=== PATIENT | female | born 1990 | race Caucasian/White ===

== ENCOUNTER 2020-09-05 15:18 | Outpatient (REF) | payer MEDICAID, SELFPAY ==
[2020-09-05 17:03] LABS: Basophils Percent Auto 0.5 % (0-2); MANUAL DIFF FLAG SCAN; Mean Corpuscular Volume 89.1 fL (80-98); Red Cell Distribution Width 12.4 % (11.0-16.0); SCAN SMEAR FLAG 1
[2020-09-05 17:05] LABS: Eosinophils Absolute Auto 0.2 X10*3/uL (0.0-0.4); Eosinophils Percent Auto 2.7 % (0-4); Hematocrit 36.1 % (37-47); Hemoglobin 11.8 g/dl (12.0-16.0); Imm Gran Abs Auto 0.02 X10*3/uL (0.00-0.03); Imm Gran Pct Auto 0.3 % (0.0-0.4); Lymphocytes Percent Auto 32.3 % (20-40); Mean Corpuscular HGB Conc 32.7 g/dl (31.0-35.0); Mean Corpuscular Hemoglobin 29.1 pg (27.0-33.0); Mean Platelet Volume 11.7 fL (9.4-12.3); Monocytes Absolute Auto 0.4 X10*3/uL (0.1-1.2); Monocytes Percent Auto 6.8 % (2-11); Neutrophils Absolute Auto 3.5 X10*3/uL (2.0-8.3); Neutrophils Percent Auto 57.4 % (45-73); Red Blood Count 4.05 X10*6/uL (4.20-5.50)
[2020-09-05 17:11] LABS: Estimated Average Glucose 91 mg/dL; Hemoglobin A1c % 4.8 %
[2020-09-05 17:26] LABS: C Reactive Protein 0.02 mg/dL (< or = 0.50); Cholesterol 136 mg/dL; HDL Cholesterol 58 mg/dL; Iron 128 mcg/dL (30-160); LDL Cholesterol Calculated 69 mg/dl; Percent Iron Saturation 41 % (15-50); Total Iron Binding Capacity 312 mcg/dL (228-428); Triglycerides 48 mg/dL; Unsaturated Iron Binding 184 ug/dL
[2020-09-05 17:34] LABS: SLIDE REVIEW VERIFIED
[2020-09-05 17:47] LABS: Ferritin 14 ng/mL (10-122); TSH reflex Free T4 0.58 mIU/mL (0.32-4.0); Vitamin D 25-OH Total 21.4 ng/mL (>30)
[2020-09-05 20:01] LABS: Alanine Aminotransferase 11 U/L (0-31); Alkaline Phosphatase 52 U/L (39-117); Anion Gap 13 (12-20); Aspartate Amino Transferase 13 U/L (5-31); Bilirubin Total 0.4 mg/dL (0.0-1.0); Blood Urea Nitrogen 10 mg/dL (9-16); Carbon Dioxide 24 mmol/L (22-29); Chloride 104 mmol/L (96-108); Estimated Glomerular Filt Rate > 60; Glucose Random 81 mg/dL (60-115); Potassium 4.1 mmol/l (3.3-5.1); Sodium 137 mmol/L (135-145); Total Protein 6.3 g/dL (6.5-8.0)
[2020-09-05 20:20] LABS: Platelet Count 180 X10*3/uL (160-400)
[2020-09-08 21:52] LABS: Vitamin B12 652 pg/mL (200-900)
[2020-09-09 02:26] LABS: Zinc 69 mcg/dL (60-130)
[2020-09-10 09:02] LABS: Vitamin B1 8 nmol/L (8-30)
[2020-09-10 12:57] LABS: Vitamin A 34 mcg/dL (38-98)
[2020-09-10 17:11] LABS: Parathyroid Hormone Related Pr 13 pg/mL (14-27)
== END 2020-09-05 15:19 | disposition home or self-care (01) ==
LOC: HO.LAB 15:18
PROVIDERS: Visit Provider Physician Assistant
DX: K29.70 Gastritis, unspecified, without bleeding (principal); Z98.84 Bariatric surgery status
CPT/HCPCS: 36415; 80048; 80053; 80061; 82040; 82247; 82306; 82607; 82728; 82746; 83036; 83519; 83525; 83540; 84075; 84155; 84425; 84443; 84450; 84460; 84590; 84630; 85025; 86140; 99214

== ENCOUNTER → 2020-09-12 12:47 | Outpatient (BNVA) | payer MEDICAID, SELFPAY | PROVIDERS: Visit Provider Physician Assistant | DX: E66.9 Obesity, unspecified (principal); Z68.25 Body mass index [BMI] 25.0-25.9, adult; E55.9 Vitamin D deficiency, unspecified; D64.9 Anemia, unspecified; E50.9 Vitamin A deficiency, unspecified; K29.00 Acute gastritis without bleeding; Z79.899 Other long term (current) drug therapy; Z98.84 Bariatric surgery status | CPT/HCPCS: 99213 ==

== ENCOUNTER → 2020-10-15 13:37 | Outpatient (BNVA) | payer MEDICAID, SELFPAY | PROVIDERS: Visit Provider Physician Assistant | DX: Z76.89 Persons encountering health services in other specified circumstances (principal) ==

== ENCOUNTER 2020-11-27 10:22 | Outpatient (REF) | payer MEDICAID, SELFPAY | END 2020-11-27 10:23 | disposition home or self-care (01) | LOC: HO.LAB 10:22 | PROVIDERS: Visit Provider Internal Medicine | DX: Z20.828 Contact with and (suspected) exposure to other viral communicable diseases (principal) | CPT/HCPCS: C9803; U0003 ==

== ENCOUNTER → 2020-12-19 08:50 | Outpatient (BNVA) | payer MEDICAID, SELFPAY | PROVIDERS: Visit Provider Physician Assistant ==

== ENCOUNTER → 2021-01-14 08:27 | Outpatient (BNVA) | payer MEDICAID, SELFPAY | PROVIDERS: Visit Provider Physician Assistant ==

== ENCOUNTER → 2021-05-14 10:25 | Outpatient (BNVA) | payer MEDICAID, SELFPAY | PROVIDERS: Visit Provider Physician Assistant | DX: E66.01 Morbid (severe) obesity due to excess calories (principal); E50.9 Vitamin A deficiency, unspecified; E55.9 Vitamin D deficiency, unspecified; D64.9 Anemia, unspecified; Z98.84 Bariatric surgery status | CPT/HCPCS: 99212 ==

== ENCOUNTER 2021-08-05 08:48 | Outpatient (REF) | payer MEDICAID, SELFPAY ==
--- NOTE | ~2021-08-05 | XR_ITS ---
EXAMINATION: XR LUMBOSACRAL SPINE CLINICAL INFORMATION: Lower back pain. COMPARISON: None TECHNIQUE: Three views of the lumbosacral spine. FINDINGS: Normal vertebral body alignment. The lumbar lordosis is maintained. No acute fracture or subluxation. Mild loss of intervertebral disc height with tiny anterior endplate osteophytes at L2-L3 and L5-S1. No lytic or blastic osseous lesion. Left upper quadrant surgical clips. XR/XR lumbar spine 2-3V IMPRESSION: Mild degenerative disc disease at L2-L3 and L5-S1.
== END 2021-08-05 08:49 | disposition home or self-care (01) ==
LOC: HO.XRAY 08:48
PROVIDERS: PCP Internal Medicine; Visit Provider Internal Medicine
DX: M54.5 Low back pain (principal)
CPT/HCPCS: 72100

== ENCOUNTER 2021-08-06 16:32 | Emergency (ER) | payer MEDICAID, SELFPAY ==
[2021-08-06 17:03] VITALS: BP 139/95; PULSE 82; RESP 16; TEMP 37.2; O2SAT 99; BMI 25.9
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
== END 2021-08-06 18:40 | disposition home or self-care (01) ==
LOC: HO.ED 18:12
PROVIDERS: Emergency Provider Emergency Medicine; PCP Internal Medicine
DX: M54.5 Low back pain (principal); Z98.84 Bariatric surgery status
CPT/HCPCS: 99283

== ENCOUNTER 2021-08-19 09:25 | Outpatient (REF) | payer MEDICAID, SELFPAY ==
--- NOTE | ~2021-08-19 | MR_ITS ---
EXAMINATION: MR LUMBAR SPINE WITHOUT CONTRAST CLINICAL INFORMATION: Bilateral leg pain and toe numbness or weakness. Lower back pain radiating to both legs. COMPARISON: Lumbar spine radiographs dated 08/05/2021. TECHNIQUE: MRI of the lumbar spine was obtained using routine sequences without contrast. FINDINGS: VERTEBRAL BODIES AND PARASPINAL STRUCTURES: Minimal dextrocurvature of the lumbar spine, unchanged. The lumbar lordosis is maintained. No acute fracture. Minimal grade 1 retrolisthesis of L5 on S1. No loss of vertebral body height. Loss of intervertebral disc height with disc desiccation at L5-S1. No marrow edema to suggest acute osseous injury. The visualized paraspinal soft tissues are unremarkable. CONUS MEDULLARIS AND CAUDA EQUINA: Normal, terminating at the level of L1. SPINAL LEVELS: T12-L1: No significant disc bulge. No central canal or neural foraminal stenosis. L1-L2: No significant disc bulge. No central canal or neural foraminal stenosis. L2-L3: No significant disc bulge. No central canal or neural foraminal stenosis. L3-L4: Shallow right subarticular disc protrusion which abuts the exiting right L3 nerve root. Bilateral facet arthropathy with mild right neural foraminal stenosis. L4-L5: Mild broad-based disc bulge with bilateral facet arthropathy. Mild bilateral neural foraminal stenosis. L5-S1: Broad-based disc bulge with a superimposed right paracentral and subarticular disc protrusion which abuts the exiting right L5 nerve root. Bilateral facet arthropathy with [id number] right and mild left neural foraminal stenosis. MR/MR lumbar spine wo con IMPRESSION: 1. Prominent degenerative disc disease at L5-S1 with minimal grade 1 retrolisthesis. Broad-based disc bulge with a superimposed right paracentral/subarticular disc protrusion which abuts the exiting right L5 nerve root. Bilateral facet arthropathy with [id number] right and mild left neural foraminal stenosis. 2. Shallow right subarticular disc protrusion at L3-L4 which abuts the exiting right L3 nerve root. Bilateral facet arthropathy with mild right neural foraminal stenosis. 3. Mild broad-based disc bulge at L4-L5 with bilateral facet arthropathy and mild bilateral neural foraminal stenosis.
== END 2021-08-19 09:26 | disposition home or self-care (01) ==
LOC: HO.MRI 09:25
PROVIDERS: Visit Provider Internal Medicine
DX: M54.42 Lumbago with sciatica, left side (principal)
CPT/HCPCS: 72148

== ENCOUNTER 2021-08-25 09:00 | Outpatient (RCR) | payer MEDICAID, SELFPAY ==
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
== END 2022-03-17 08:13 | disposition home or self-care (01) ==
LOC: HO.PTCHIC 09:00
PROVIDERS: PCP Internal Medicine; Visit Provider Internal Medicine
DX: M54.5 Low back pain (principal)
CPT/HCPCS: 97110; 97162

== ENCOUNTER → 2021-12-23 12:48 | Outpatient (REF) | payer MEDICAID, SELFPAY ==
--- NOTE | 2021-12-23 12:53 | ECG_ITS ---
Hook-up date: 2021-12-23 13:12:00 Duration: 41:32:00 Test Indications: PALPITATIONS Medications: 92521 QRS complexes 7 Ventricular ectopics which represent <1 % of total QRS comp. 7 Supraventricular ectopics which represent <1 % of total QRS comp. * Paced QRS complexs which represent % of total QRS comp. VENTRICULAR ECTOPY 7 Isolated 0 Bigeminal Cycles 0 Couplets 0 Runs 0 Beats in Runs * Beats LONGEST at * BPM at :: -- * Beats FASTEST at * BPM at :: -- SUPRAVENTRICULAR ECTOPY 7 Isolated 0 Couplets 0 Runs 0 Beats in Runs * Beats LONGEST at * BPM at :: -- * Beats FASTEST at * BPM at :: -- HEART RATES 43 MIN at 06:23:22 2021-12-24 70 AVG 155 MAX at 17:26:33 2021-12-23 LONGEST RR 1.4960 secs at 06:23:16 2021-12-24 S-T LEVELS Channel 1 - 128 mm at 13:12:00 2021-12-23 - 128 mm at 13:12:00 2021-12-23 Channel 2 - 128 mm at 13:12:00 2021-12-23 - 128 mm at 13:12:00 2021-12-23 Channel 3 - 128 mm at 03:23:11 -- - 128 mm at 03:23:11 Underlying rhythm is sinus; Average ventricular rate 70/min; range 43-155/min; Very rare supraventricular/ventricular ectopy; No sustained arrhythmias; Overall unremarkable. Referred By: Bella Blankenship Overread By: MARLENY VEGA
== END ==
LOC: HO.CARD 12:48
PROVIDERS: Visit Provider Student in an Organized Health Care Education/Training Program
DX: R00.2 Palpitations (principal)
CPT/HCPCS: 93225; 93226

== ENCOUNTER 2023-09-29 09:47 | Outpatient (AMB) | payer MEDICAID, SELFPAY ==
--- NOTE | 2023-09-29 10:07 | A.OFFVIS_ITS ---
Intake Vital Signs 09/29/23 10:14 Height 5 ft 9 in Weight 209 lb BMI 30.9 BP 133/78 Blood Pressure Location Lt brachial Position Sitting Pulse 74 Intake Visit Reasons: Rt breast pain at bx site Intake Note: Patient is seen in office for evaluation and treatment of of right breast pain at biopsy site. 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 The pain started without any inciting events and has persisted for the past month without significant change. She denies any palpable mass in either breast and denies skin change, nipple discharge or enlarged lymph nodes. She denies any recent mammogram or ultrasound evaluation. Her family history is significant for a maternal grandmother and paternal aunt with breast cancer. [facility] Medical History Obesity Fibroadenoma of right breast Depression with anxiety Surgical History History of lumpectomy of right breast (01/24/20) History of lumpectomy of left breast (06/11/19) Hx of breast biopsy (11/07/19) S/P laparoscopic sleeve gastrectomy (08/16/19) Family History Maternal Aunt Breast cancer, Onset Age: 40 Maternal Grandmother Breast cancer Social History Alcohol intake: never Review of Systems Const All systems reviewed & are unremarkable except as noted in HPI and below Physical Exam Vital Signs: Last Vital Signs Pulse 74 09/29/23 10:14 BP 133/78 09/29/23 10:14 BMI result Body Mass Index 30.9 Const General: cooperative and no acute distress Nutritional Appearance: well nourished Orientation/consciousness: patient oriented x3 Limitations: no limitations HEENT Head: Yes normocephalic and Yes atraumatic Ears: hearing grossly normal bilaterally Chest Other: Left breast: No skin change, no nipple retraction, no nipple discharge, no palpable mass, no enlarged lymph nodes. Fibrocystic change noted in the upper outer quadrant with mild tenderness to palpation. Right breast: No skin change, no nipple retraction, no nipple discharge, no palpable mass, no enlarged lymph nodes. Well-healed incision in the 9 o'clock position with mild tenderness to palpation. Tenderness also noted in the upper outer quadrant with an area of mild fibrocystic change but no discrete mass. Resp Effort & Inspection: normal respiratory effort, no audible wheezes, no cough and no respiratory distress Cardio Jugular venous distension: no JVD GI Inspection: Yes normal to inspection Skin Other: Warm, dry, no rash Neuro General: patient oriented x3 Extrem General: Yes no clubbing, cyanosis or edema Assessment & Plan Assessment & Plan (1) Breast pain, right: Code(s): N64.4 - Mastodynia (2) Fibroadenoma: Code(s): D24.9 - Benign neoplasm of unspecified breast Qualifiers: Laterality: right Qualified Code(s): D24.1 - Benign neoplasm of right breast Plan 33-year-old female patient with a prior history of fibroadenoma of the right breast s/p excision in 2019. She returns with a one-month history of right breast pain approximately adjacent to the previous incision. This started without any inciting events. Examination today reveals mild fibrocystic change bilaterally without any suspicious findings in either breast. I recommended further evaluation with mammogram and ultrasound. I will call her with the results once available. We also discussed genetic testing given her family history of breast cancer in both a maternal aunt and maternal grandmother. She is agreeable to the testing and will return following the testing to review results. Orders: Orders MM diagnostic mammo BI Today D24.9 - Benign neoplasm of unspecified breast, N64.4 - Mastodynia US breast RT limited Today D24.9 - Benign neoplasm of unspecified breast, N64.4 - Mastodynia Coding Level of Care Code New Pt Level 4 (14192) Diagnoses Breast pain, right N64.4 Fibroadenoma of right breast D24.1 Laterality: right
[2023-09-29 10:14] VITALS: BP 133/78; PULSE 74; BMI 30.9
== END 2023-09-29 10:30 | disposition home or self-care (01) ==
PROVIDERS: PCP Internal Medicine; Visit Provider Surgery
DX: N64.4 Mastodynia (principal); D24.1 Benign neoplasm of right breast
CPT/HCPCS: 99204

== ENCOUNTER → 2023-09-29 09:47 | Outpatient (BNVA) | payer MEDICAID, SELFPAY | PROVIDERS: PCP Internal Medicine; Visit Provider Surgery | DX: G89.18 Other acute postprocedural pain (principal); N64.4 Mastodynia | CPT/HCPCS: 99202 ==

== ENCOUNTER 2023-10-12 09:37 | Outpatient (REF) | payer MEDICAID, SELFPAY ==
--- NOTE | ~2023-10-12 | US_ITS ---
EXAMINATION: MM DIAGNOSTIC DIGITAL BREAST TOMOSYNTHESIS, BILATERAL US BREAST LIMITED, RIGHT MAMMOGRAPHY: CLINICAL INFORMATION: Evaluation of focal pain in the 8-12 o'clock region of the right breast over an area of scarring from a excision of a fibroadenoma. COMPARISON: Mammography: This study is compared with prior mammograms dating back to 2018. TECHNIQUE: Digital breast tomosynthesis is performed in both the craniocaudal and mediolateral oblique views along with computer-aided detection (CAD). Synthesized 2D images are generated from the tomosynthesis. FINDINGS: There are scattered areas of fibroglandular density (ACR BI-RADS breast composition Category b). There are no significant masses, abnormal calcifications, or other abnormalities. There are no mammographic signs of malignancy. ULTRASOUND: CLINICAL INFORMATION: Focal right breast pain in the 8-12 o'clock region. COMPARISON: None TECHNIQUE: Targeted sonographic evaluation was performed using a high frequency linear transducer. Selected archived documentation. FINDINGS: RIGHT BREAST: There is no focal finding in 8-12 o'clock region. Clinical follow-up is advised. US/US breast RT limited mamm only IMPRESSION: No mammographic signs of malignancy in either breast. No focal mammographic or sonographic abnormality and no finding which can be attributed to the patient's focal breast pain. Clinical follow-up is advised. OVERALL ASSESSMENT: Mammography: BI-RADS 1 - Negative Ultrasound: BI-RADS 1 - Negative RECOMMENDATION: 1 year F/U Clinical follow-up for the patient's breast pain is also advised. Results were provided to the patient at time of visit by the technologist. This patient's information was entered into a reminder system with a target due date for their next mammogram.
== END 2023-10-12 09:38 | disposition home or self-care (01) ==
LOC: HO.MAMMO 09:37
PROVIDERS: PCP Internal Medicine; Visit Provider Surgery
DX: N64.4 Mastodynia (principal)
CPT/HCPCS: 76642; 77062; 77066

== ENCOUNTER → 2023-10-12 10:00 | Outpatient (BNV) | payer MEDICAID, SELFPAY | PROVIDERS: PCP Internal Medicine; Visit Provider Radiology Diagnostic Radiology | DX: N64.4 Mastodynia (principal); R92.323 Mammographic fibroglandular density, bilateral breasts | CPT/HCPCS: 76642; 77062; 77066 ==

== ENCOUNTER 2023-11-10 09:52 | Outpatient (AMB) | payer MEDICAID, SELFPAY ==
--- NOTE | 2023-11-10 10:04 | MHC.OFFVIS ---
Intake Vital Signs 11/10/23 10:14 Height 5 ft 9 in Weight 211 lb BMI 31.2 BP 142/78 H Blood Pressure Location Lt brachial Position Sitting Pulse 91 Intake Visit Reasons: Rt breast pain at bx site, mammo/us results Intake Note: Patient is seen in office for one month follow up visit, following right breast pain at bx site. 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 The pain started without any inciting events and has persisted for the past 1.5 months without significant change. She denies any palpable mass in either breast and denies skin change, nipple discharge or enlarged lymph nodes. She was previously evaluated on 09/29/2023 and no suspicious findings noted at the area of the previous biopsy. She reports that her maternal aunt recently from metastatic breast cancer. She returns today to review her recent mammogram and ultrasound. The studies revealed no suspicious findings in either breast with a negative right breast ultrasound the site of breast pain (BI-RADS 1). Follow-up mammogram in 1 year is recommended. We again discussed genetic testing given her family history of breast cancer. She is in agreement wishes to proceed today. [facility] Medical History Obesity Fibroadenoma of right breast Depression with anxiety Surgical History History of lumpectomy of right breast (01/24/20) History of lumpectomy of left breast (06/11/19) Hx of breast biopsy (11/07/19) S/P laparoscopic sleeve gastrectomy (08/16/19) Family History Maternal Aunt Breast cancer, Onset Age: 40 Maternal Grandmother Breast cancer Social History Alcohol intake: never Review of Systems Const All systems reviewed & are unremarkable except as noted in HPI and below Physical Exam Vital Signs: Last Vital Signs Pulse 91 11/10/23 10:14 BP 142/78 H 11/10/23 10:14 BMI result Body Mass Index 31.2 Const General: no acute distress Nutritional Appearance: well nourished Chest Other: Exam deferred Resp Effort & Inspection: normal respiratory effort Skin Other: Warm dry, no rash Extrem Other: No edema Assessment & Plan Assessment & Plan (1) Breast pain, right: Code(s): N64.4 - Mastodynia (2) Fibroadenoma: Code(s): D24.9 - Benign neoplasm of unspecified breast Qualifiers: Laterality: right Qualified Code(s): D24.1 - Benign neoplasm of right breast Plan 33-year-old female patient with a prior history of fibroadenoma of the right breast s/p excision in 2019. She returned with a one-month history of right breast pain approximately adjacent to the previous incision. This started without any inciting events. Examination reveal mild fibrocystic change bilaterally without any suspicious findings in either breast. Workup with mammogram and ultrasound revealed no suspicious findings in either breast (BI-RADS 1). I recommended genetic testing which will be performed today. She will follow-up in approximately 6 months to review the results. She expressed understanding and agrees with the plan. Coding Level of Care Code Est Pt Level 3 (46685) Diagnoses Breast pain, right N64.4 Fibroadenoma of right breast D24.1 Laterality: right
[2023-11-10 10:14] VITALS: BP 142/78; PULSE 91; BMI 31.2
== END 2023-11-10 10:47 | disposition home or self-care (01) ==
PROVIDERS: PCP Internal Medicine; Visit Provider Surgery
DX: N64.4 Mastodynia (principal); D24.1 Benign neoplasm of right breast
CPT/HCPCS: 99213

== ENCOUNTER → 2023-11-10 09:52 | Outpatient (BNVA) | payer MEDICAID, SELFPAY | PROVIDERS: PCP Internal Medicine; Visit Provider Surgery | DX: N64.4 Mastodynia (principal); D24.1 Benign neoplasm of right breast | CPT/HCPCS: 99212 ==

== ENCOUNTER 2023-12-22 09:36 | Outpatient (AMB) | payer MEDICAID, SELFPAY ==
--- NOTE | 2023-12-22 09:37 | A.OFFVIS_ITS ---
Intake Vital Signs 12/22/23 09:43 Height 5 ft 9 in Weight 213 lb BMI 31.5 BP 125/61 Blood Pressure Location Lt brachial Position Sitting Pulse 73 Intake Visit Reasons: Genetic Results *HERE* Intake Note: Patient is seen in office for genetic testing results. 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 She has a prior history of right breast fibroadenoma excised on 01/24/2020 she has a family history of a maternal aunt with metastatic breast cancer. Her most recent mammogram and ultrasound obtained 10/12/2023 revealed no mammographic or sonographic evidence of malignancy (BI-RADS 1). Genetic testing revealed no clinically significant mutations identified and no variance of unknown significance. Her breast cancer risk score for remaining life was calculated at 10.7 % which is below the 20% threshold. We also discussed the Tyrer-Cuzick remaining lifetime risk of breast cancer of 20.3 % and reviewed the difference between the 2 scores. We reviewed the option of increased screening with twice yearly breast examination, yearly mammogram alternating with yearly breast MRI performed every 6 months and monthly self examinations. She expressed understanding of her options. Copy of the report was provided to the patient today. [facility] Medical History Obesity Fibroadenoma of right breast Depression with anxiety Surgical History History of lumpectomy of right breast (01/24/20) History of lumpectomy of left breast (06/11/19) Hx of breast biopsy (11/07/19) S/P laparoscopic sleeve gastrectomy (08/16/19) Family History Maternal Aunt Breast cancer, Onset Age: 40 Maternal Grandmother Breast cancer Social History Alcohol intake: never Review of Systems Const All systems reviewed & are unremarkable except as noted in HPI and below Physical Exam Vital Signs: Last Vital Signs Pulse 73 12/22/23 09:43 BP 125/61 12/22/23 09:43 BMI result Body Mass Index 31.5 Const General: comfortable Nutritional Appearance: well nourished Orientation/consciousness: patient oriented x3 Chest Other: Exam deferred Resp Effort & Inspection: normal respiratory effort Neuro General: patient oriented x3 Assessment & Plan Assessment & Plan (1) Fibroadenoma: Code(s): D24.9 - Benign neoplasm of unspecified breast Qualifiers: Laterality: right Qualified Code(s): D24.1 - Benign neoplasm of right breast (2) Breast pain, right: Code(s): N64.4 - Mastodynia (3) Family history of breast cancer: Code(s): Z80.3 - Family history of malignant neoplasm of breast Plan 33-year-old female patient with a family history of breast cancer in a maternal aunt and a previous history of fibroadenoma of the breast. She underwent genetic testing on 11/10/2023. Results revealed node clinically significant mutations and no variance of uncertain significance. Her breast cancer risk score was calculated at 10.7 %. She should continue with monthly self examinations and yearly mammograms. Yearly MRIs could be added based on the Tyrer-Cuzick score if desired. She will think about her options and follow-up as needed. Coding Level of Care Code Est Pt Level 3 (17772) Diagnoses Fibroadenoma of right breast D24.1 Laterality: right Breast pain, right N64.4 Family history of breast cancer Z80.3
[2023-12-22 09:43] VITALS: BP 125/61; PULSE 73; BMI 31.5
== END 2023-12-22 09:50 | disposition home or self-care (01) ==
PROVIDERS: PCP Internal Medicine; Referring Provider Internal Medicine; Visit Provider Surgery
DX: D24.1 Benign neoplasm of right breast (principal); N64.4 Mastodynia; Z80.3 Family history of malignant neoplasm of breast
CPT/HCPCS: 99213

== ENCOUNTER → 2023-12-22 09:36 | Outpatient (BNVA) | payer MEDICAID, SELFPAY | PROVIDERS: PCP Internal Medicine; Visit Provider Surgery | DX: D24.1 Benign neoplasm of right breast (principal); Z80.3 Family history of malignant neoplasm of breast | CPT/HCPCS: 99212 ==

== ENCOUNTER 2024-06-26 11:35 | Outpatient (REF) | payer MEDICAID, SELFPAY ==
[2024-06-26 14:13] LABS: Estimated Average Glucose 103 mg/dL; Hemoglobin A1c % 5.2 % (<6.0)
[2024-06-26 14:30] LABS: Alanine Aminotransferase 8 U/L (0-31); Aspartate Amino Transferase 21 U/L (5-31)
[2024-06-26 16:26] LABS: Bacterial Vaginosis PCR NEGATIVE (Negative); Candida Group PCR NOT DETECTED (Not Detect); Candida glab krusei PCR NOT DETECTED (Not Detect); Trichomonas vaginalis PCR NOT DETECTED (Not Detect)
[2024-06-27 04:42] LABS: HIV AB/AG Nonreactive (Nonreactive); HIV Num 1 0.06 S/CO (0.00-0.99)
== END 2024-06-26 11:36 | disposition home or self-care (01) ==
LOC: HO.HHCL 11:35
PROVIDERS: Visit Provider Advanced Practice Midwife
DX: Z79.899 Other long term (current) drug therapy (principal); Z11.3 Encounter for screening for infections with a predominantly sexual mode of transmission; Z83.3 Family history of diabetes mellitus; N89.8 Other specified noninflammatory disorders of vagina; R39.9 Unspecified symptoms and signs involving the genitourinary system
CPT/HCPCS: 0352U; 36415; 83036; 84450; 84460; 87086; 87389

== ENCOUNTER 2024-07-04 | Outpatient (REF) | payer MEDICAID, SELFPAY ==
[2024-07-06 10:55] LABS: Bacterial Vaginosis PCR NEGATIVE (Negative); Candida Group PCR NOT DETECTED (Not Detect); Candida glab krusei PCR NOT DETECTED (Not Detect); Trichomonas vaginalis PCR NOT DETECTED (Not Detect)
== END 2024-07-04 00:01 | disposition home or self-care (01) ==
LOC: HO.HHCLNP
PROVIDERS: Visit Provider Advanced Practice Midwife
DX: N94.89 Other specified conditions associated with female genital organs and menstrual cycle (principal)
CPT/HCPCS: 0352U

== ENCOUNTER 2024-09-26 13:51 | Outpatient (REF) | payer MEDICAID, SELFPAY ==
[2024-09-27 11:14] LABS: Bacterial Vaginosis PCR POSITIVE (Negative); Candida Group PCR DETECTED (Not Detect); Candida glab krusei PCR NOT DETECTED (Not Detect); Trichomonas vaginalis PCR NOT DETECTED (Not Detect)
== END 2024-09-26 13:52 | disposition home or self-care (01) ==
LOC: HO.CHCLNP 13:51
PROVIDERS: Visit Provider Family Medicine
DX: N76.0 Acute vaginitis (principal)
CPT/HCPCS: 0352U

== ENCOUNTER 2024-10-02 10:56 | Outpatient (REF) | payer MEDICAID, SELFPAY ==
[2024-10-02 14:28] LABS: MANUAL DIFF FLAG NO
[2024-10-02 14:39] LABS: Basophils Percent Auto 0.6 % (0-2); Hematocrit 28.9 % (37.0-47.0); Hemoglobin 8.4 g/dl (12.0-16.0); Imm Gran Abs Auto 0.02 X10*3/uL (0.00-0.03); Imm Gran Pct Auto 0.3 % (0.0-0.4); Lymphocytes Absolute Auto 1.2 X10*3/uL (1.2-4.9); Lymphocytes Percent Auto 18.7 % (20-40); Mean Corpuscular HGB Conc 29.1 g/dl (31.0-35.0); Mean Corpuscular Hemoglobin 22.6 pg (27.0-33.0); Mean Corpuscular Volume 77.9 fL (80.0-98.0); Monocytes Absolute Auto 0.4 X10*3/uL (0.1-1.2); Monocytes Percent Auto 6.6 % (2-11); Neutrophils Absolute Auto 4.7 x10*3/uL (2.0-8.3); Neutrophils Percent Auto 73.8 % (45-73); Platelet Count 330 X10*3/uL (160-400); Red Blood Count 3.71 X10*6/uL (4.20-5.50); Red Cell Distribution Width 16.8 % (11.0-16.0); White Blood Count 6.4 X10*3/uL (4.8-10.8)
[2024-10-02 15:29] LABS: Alanine Aminotransferase 14 U/L (0-31); Albumin Level 3.7 g/dL (3.5-5.0); Anion Gap 10 (12-20); Aspartate Amino Transferase 39 U/L (5-31); Bilirubin Total 0.2 mg/dL (0.0-1.0); Blood Urea Nitrogen 8 mg/dL (9-16); Calcium 9.3 mg/dL (8.4-10.2); Carbon Dioxide 24 mmol/L (22-29); Chloride 108 mmol/L (96-108); Cholesterol 169 mg/dL (<200); Estimated Glomerular Filt Rate > 60; Ferritin 4 ng/mL (10-122); Glucose Random 89 mg/dL (60-115); HDL Cholesterol 61 mg/dL (>40); Iron 21 mcg/dL (30-160); LDL Cholesterol Calculated 87 mg/dL (<100); Percent Iron Saturation 6 % (15-50); Potassium 4.2 mmol/L (3.3-5.1); Sodium 138 mmol/L (135-145); TSH reflex Free T4 0.48 uIU/mL (0.32-4.0); Total Iron Binding Capacity 351 mcg/dL (228-428); Total Protein 6.4 g/dL (6.5-8.0); Triglycerides 105 mg/dL (<150); Unsaturated Iron Binding 330 ug/dL; Vitamin D 25-OH Total 16.3 ng/mL (>30)
[2024-10-02 16:43] LABS: Alkaline Phosphatase 81 U/L (39-117)
== END 2024-10-02 10:57 | disposition home or self-care (01) ==
LOC: HO.CHCLDS 10:56
PROVIDERS: Visit Provider Family Medicine
DX: E55.9 Vitamin D deficiency, unspecified (principal); D64.9 Anemia, unspecified; R53.83 Other fatigue; E66.812 Obesity, class 2; Z68.35 Body mass index [BMI] 35.0-35.9, adult
CPT/HCPCS: 36415; 80053; 80061; 82306; 82728; 83540; 84443; 85025

== ENCOUNTER 2025-11-14 15:59 | Outpatient (REF) | payer MEDICAID, SELFPAY ==
--- OUTSIDE RECORDS SUMMARY | 2025-11-14 15:30 | XMS_ITS | Encounter Summary ---
Author Organization [employer] Address [address] [place] [address] [address] [place] [address] Care Team Providers Care Respiratory Equipment Assistant Name Role Phone Yasmin Deras MD Primary Care Provider [phone] Encounter Details Date Type Department Care Team ([facility] st Contact Info) Description 11/14/2025 3:30 PM EST Office Visit [facility] [address] [place] [address] Yasmin Deras MD [address] [place] [address] Anemia, unspecified type (Primary Dx); Encounter for health-related screening; Vitamin D deficiency Social History Tobacco Use Types Packs/Day Years Used Date Smoking Tobacco: Never Passive Smoke Exposure: Never Smokeless Tobacco: Never Alcohol Use Standard Drinks/Week Comments Never 0 (1 standard drink = 0.6 oz pur e alcohol) Alcohol Answer Date Recorded Frequency of Alcohol Consumption Not on file 09/26/2024 Average Number of Drinks Not on file 024 Frequency of Binge Drinking Not on file 08/30 Score 0 09/26/2024 Depression Answer Date Recorded Patient Health Questionnaire-9 Score 15 09/26/2024 Patient Health Questionnaire-9 Score 15 09/26/2024 Last PHQ-9: Questionnaire Data Not on file 1 Housing Stability Answer Date Recorded What is your housing situation today? I have shayy lindsey 09/19/[address] you li ve. Do you have problems with any of the following? None of the above 09/19/2024 Food Insecurity Answer Date Recorded Within the past 12 months, y ou worried that your food would run out before you got money to buy more: Never True 09/19/2024 Within the past 12 months,th e food you bought just didn't last and you didn't have enough money to get more: Never True Transportation Answer Date Recorded In the past 12 months, has l ack of transportation kept you from medical appts, meetings, work or from getting things needed for daily living? No 09/19/2024 Utilities Answer Date Recorded In the past 12 months, has t he electric, gas, oil or water company threatened to shut off services in your home? No 09/19/2024 Depression Answer Date Recorded Patient Health Questionnaire-2 Score 3 09/26/2024 Internet Access Answer Date Recorded Internet Access Q1 Yes 09/19/2024 Internet Access Q2 Not on file 09/19/2024 Comments No Sex and Gender Information Value Date Recorded Sex Assigned at Female 09/27/2022 10:30 AM EDT Legal Sex Female 10:30 AM EDT Gender Identity Female 09/27/2022 10:30 AM EDT Sexual Orientation Straight 09/27/2022 10 :30 AM EDT documented as of this encounter Last Filed Vital Signs Vital Sign Reading Time Taken Comments Blood Pressure 125/82 11/14/2025 3:18 PM EST Pulse 80 11/14/2025 3:18 PM EST Temperature 36.8 C (98.2 F) 11/14/2025 3:18 PM EST Respiratory Rate 20 11/14/2025 3:18 PM EST Oxygen Saturation 98% 11/14/2025 3:18 PM EST Inhaled Oxygen Concentration - - Weight 110 kg (243 lb) 11/14/2025 3:18 PM EST Height 174 cm (5' 8.5 ) 11/14/2025 3:18 PM EST Body Mass Index 36.41 11/14/2025 3:18 PM EST documented in this encounter Plan of Treatment Scheduled Orders Name Type Priority Associated Diagnoses Orde r Schedule Hepatitis C Antibody with Reflex to HCV, RNA, Quantitative, Real-Time PCR Lab Routine Encounter for health-related screening Expected: 11/14/2025, Expires: 11/14/2026 Hepatitis B Surface Antibody, Qualitative Lab Routine Encounter for health-related screening Expected: 11/14/2025 (Approximate), Expires: 11/14/2026 Hepatitis B Core Antibody, Total Lab Routine Encounter for health-related screening Expected: 11/14/2025 (Approximate), Expires: 11/14/2026 Hepatitis B surface antigen, EIA Lab Routine Encounter for health-related screening Expected: 11/14/2025 (Approximate), Expires: 11/14/2026 documented as of this encounter Procedures Procedure Name Priority Date/Time Associated Diagnosis Comments VITAMIN D,25-OH,TOTAL,IA Routine 11/14/2025 4:00 PM EST Vitamin D deficiency CBC WITH AUTO DIFFERENTIAL Routine 11/14/2025 4:00 PM EST Anemia, unspecified type IRON AND TOTAL IRON BINDING CAPACITY Routine 11/14/2025 4:00 PM EST Anemia, unspecified type FERRITIN Routine 11/14/2025 4:00 PM EST Anemia, unspecified type COMPREHENSIVE METABOLIC PANEL Routine 11/14/2025 4:00 PM EST Anemia, unspecified type documented in this encounter Results * (ABNORMAL) Vitamin D, 25-Hydroxy, Total, Immunoassay (11/14/2025 4:00 PM EST) Vitamin D 25-OH Total 15.4(L) >30 ng/mL [facility] Comment: Health Based Reference Values*< 20 ng/mL Svvddmmti51-22 ng/mL Insufficient> 30 ng/mL Sufficient*Antonietta MARSHALL. N Engl J Med. 2007;357:266-280There is no well-established upper level of normal vitamin Dlevels. Some laboratories use 50 ng/mL as an upper limit ofnormal. However, toxicity is patient-dependent and may occurat any level. Careful correlation with the patient'spresentation is necessary and, if there is concern forvitamin D toxicity, treatment should be consideredirrespective of the serum level.Care must be taken in interpreting Vitamin D results fromdifferent laboratories and methodologies. Published datademonstrated that results from patients undergoinghemodialysis may show a negative bias when tested withvarious automated 25-OH vitamin D assays when compared toLC-MS/MS.When testing samples from patients whose predominant form ofVitamin D is Vitamin D2, such as patients receiving VitaminD2 supplementation, results that are subtherapeutic shouldbe confirmed with another method such as LC-MS/MS. Blood Venous blood specimen / Unknown 11/14/2025 4:00 PM EST 11/14/2025 5:47 PM EST Yasmin Deras MD LAB BLOOD ORDERABLES Final Re sult Performing Organization Address [facility]/ZIP Co de Phone Number [facility] [address] [place] [phone] * (ABNORMAL) Ferritin (11/14/2025 4:00 PM EST) Ferritin 5(L) 10 - 122 ng/mL [facility] Blood Venous blood specimen / Unknown 11/14/2025 4:00 PM EST 11/14/2025 5:47 PM EST Yasmin Deras MD LAB BLOOD ORDERABLES Final Re sult Performing Organization Address [facility]/ZIP Co de Phone Number [facility] [address] [place] [phone] * (ABNORMAL) Iron And Total Iron Binding Capacity (11/14/2025 4:00 PM EST) Iron 17(L) 30 - 160 mcg/dL [facility] Total Iron Binding Capacity 372 228 - 428 mcg/dL [facility] Percent Iron Saturation 5(L) 15 - 50 % [facility] Unsaturated Iron Binding 355 ug/dL [facility] Blood Venous blood specimen / Unknown 11/14/2025 4:00 PM EST 11/14/2025 5:47 PM EST Yasmin Deras MD LAB BLOOD ORDERABLES Final Re sult Performing Organization Address City/[facility]/ZIP Co de Phone Number [facility] [address] [place] [address] [phone] * (ABNORMAL) Comprehensive Metabolic Panel (11/14/2025 4:00 PM EST) Sodium 137 135 - 145 mmol/L [facility] Potassium 4.1 3.3 - 5.1 mmol/L [facility] Chloride 104 96 - 108 mmol/L [facility] Carbon Dioxide 26 22 - 29 mmol/L [facility] Anion Gap 11(L) 12 - 20 [facility] Urea Nitrogen (BUN) 10 9 - 16 mg/dL [facility] Creatinine, Serum 0.69 0.5 - 1.4 mg/dL [facility] Estimated Glomerular Filt Rate >60 [facility] Comment:Chronic Kidney Disea se: Estimated GFR < 60 mL/min/1.53h1Ddesot Kidney Disease: Estimated GFR < 15 mL/min/1.73m2 Glucose 91 60 - 115 mg/dL [facility] Calcium 9.5 8.4 - 10.2 mg/dL [facility] Bilirubin, Total 0.2 0.0 - 1.0 mg/dL [facility] Aspartate Amino Transferase 15 5 - 31 U/L [facility] Alanine Aminotransferase <6 0 - 31 U/L [facility] Total Protein 7.0 6.5 - 8.0 g/dL [facility] Albumin Level 4.3 3.5 - 5.0 g/dL [facility] Alkaline Phosphatase 64 39 - 117 U/L [facility] Blood Venous blood specimen / Unknown 11/14/2025 4:00 PM EST 11/14/2025 5:47 PM EST us Yasmin Deras MD LAB BLOOD ORDERABLES Final Re sult Performing Organization Address [facility]/ZIP Co de Phone Number [facility] [address] [place] [address] [phone] * (ABNORMAL) CBC auto differential (11/14/2025 4:00 PM EST) White Blood Count 10.7 4.8 - 10.8 X10*3/uL [facility] Red Blood Count 4.19(L) 4.20 - 5.50 X10*6/uL [facility] Hemoglobin 8.9(L) 12.0 - 16.0 g/dl [facility] Hematocrit 31.2(L) 37.0 - 47.0 % [facility] Mean Corpuscular Volume 74.5(L) 80.0 - 98.0 fL [facility] Mean Corpuscular Hemoglobin 21.2(L) 27.0 - 33.0 pg [facility] Mean Corpuscular HGB Conc 28.5(L) 31.0 - 35.0 g/dl [facility] Red Cell Distribution Width 16.5(H) 11.0 - 16.0 % [facility] Platelet Count 436(H) 160 - 400 X10*3/uL [facility] Mean Platelet Volume 10.3 9.4 - 12.3 fL [facility] Neutrophils Percent Auto 71.9 45 - 73 % [facility] Imm Gran Pct Auto 0.3 0.0 - 0.4 % [facility] Lymphocytes Percent Auto 20.9 20 - 40 % [facility] Monocytes Percent Auto 6.1 2 - 11 % [facility] Eosinophils Percent Auto 0.2 0 - 4 % [facility] Basophils Percent Auto 0.6 0 - 2 % [facility] NRBC Pct Auto 0.0 0.0 - 0.2 /100WBC [facility] Neutrophils Absolute Auto 7.7 2.0 - 8.3 x10*3/uL [facility] Imm Gran Abs Auto 0.03 0.00 - 0.03 X10*3/uL [facility] Lymphocytes Absolute Auto 2.2 1.2 - 4.9 X10*3/uL [facility] Monocytes Absolute Auto 0.7 0.1 - 1.2 X10*3/uL [facility] Eosinophils Absolute Auto 0.0 0.0 - 0.4 X10*3/uL [facility] Basophils Absolute Auto 0.1 0.0 - 0.2 X10*3/uL [facility] NRBC Abs Auto 0.000 0.0 - 0.012 X10*3/uL [facility] Blood Venous blood specimen / Unknown 11/14/2025 4:00 PM EST 11/14/2025 5:47 PM EST us Yasmin Deras MD LAB BLOOD ORDERABLES Final Re sult [facility] [address] [place] [phone] documented in this encounter Visit Diagnoses Diagnosis Anemia, unspecified type- Primary Encounter for health-related screening Vitamin D deficiency documented in this encounter Additional Health Concerns Assessment Noted Time PHQ-9 Depression Total Score: 15 024 9:32 AM EDT documented as of this encounter Care Teams Respiratory Equipment Assistant Relationship Specialty Start Date End Date Yasmin Deras MD [address] [place] [address] PCP - General Family Medicine 08/28/24 documented as of this encounter
[2025-11-14 17:49] LABS: MANUAL DIFF FLAG NO
[2025-11-14 18:01] LABS: Hematocrit 31.2 % (37.0-47.0); Hemoglobin 8.9 g/dl (12.0-16.0); Imm Gran Abs Auto 0.03 X10*3/uL (0.00-0.03); Imm Gran Pct Auto 0.3 % (0.0-0.4); Lymphocytes Absolute Auto 2.2 X10*3/uL (1.2-4.9); Mean Corpuscular HGB Conc 28.5 g/dl (31.0-35.0); Mean Corpuscular Hemoglobin 21.2 pg (27.0-33.0); Mean Corpuscular Volume 74.5 fL (80.0-98.0); NRBC Abs Auto 0.000 X10*3/uL (0.0-0.012); NRBC Pct Auto 0.0 /100WBC (0.0-0.2); Platelet Count 436 X10*3/uL (160-400); Red Blood Count 4.19 X10*6/uL (4.20-5.50); White Blood Count 10.7 X10*3/uL (4.8-10.8)
[2025-11-14 18:39] LABS: Alanine Aminotransferase < 6 U/L (0-31); Albumin Level 4.3 g/dL (3.5-5.0); Alkaline Phosphatase 64 U/L (39-117); Anion Gap 11 (12-20); Aspartate Amino Transferase 15 U/L (5-31); Blood Urea Nitrogen 10 mg/dL (9-16); Calcium 9.5 mg/dL (8.4-10.2); Carbon Dioxide 26 mmol/L (22-29); Chloride 104 mmol/L (96-108); Estimated Glomerular Filt Rate > 60; Iron 17 mcg/dL (30-160); Percent Iron Saturation 5 % (15-50); Potassium 4.1 mmol/L (3.3-5.1); Sodium 137 mmol/L (135-145); Total Iron Binding Capacity 372 mcg/dL (228-428); Total Protein 7.0 g/dL (6.5-8.0); Unsaturated Iron Binding 355 ug/dL
[2025-11-14 18:48] LABS: Ferritin 5 ng/mL (10-122)
--- OUTSIDE RECORDS SUMMARY | 2025-11-14 19:35 | XMS_ITS | Clinical Summary ---
Author Organization [employer] Address [address] [place] [address] 7 [place] [address] Care Team Providers Care Network Security Consultant Name Role Phone Yasmin Deras MD Primary Care Provider [phone] Allergies No known active allergies Medications * This document contains information received from the source organization and may not represent a complete record from that organization. cholecalcifero l (Vitamin D-3) 50 MCG (1999 UT) capsule Take 1 capsule (50 mcg) by mouth Once per day. 120 capsule 3 10/17/20 24 Active ergocalciferol (Vitamin D2) 1.25 MG (93589 UT) capsule Take 1 capsule (1.25 mg) by mouth 1 (one) time per week. 12 capsule 10/17/20 24 Active ferrous gluconate (Fergon) 324 (38 Fe) MG tablet Take 1 tablet (324 mg) by mouth with breakfast. 90 tablet 1 11/14/20 25 Active pantoprazole (ProtoNix) 40 MG EC tablet Take 1 tablet (40 mg) by mouth before breakfast. Do not crush, chew, or split. 90 tablet 1 11/14/20 25 Active omeprazole OTC (PriLOSEC OTC) 20 MG EC tablet Take 1 tablet (20 mg) by mouth before breakfast. Do not crush, chew, or split. 30 tablet 11 06/13/20 24 025 Discontinued(Th erapy completed) fluconazole (Diflucan) 150 MG tablet Take 1 tablet (150 mg) by mouth every 3rd (third) day. 3 tablet 09/26/20 24 025 Discontinued(Th erapy completed) ferrous gluconate (Fergon) 324 (38 Fe) MG tablet Take 1 tablet (324 mg) by mouth with breakfast. 90 tablet 1 10/17/20 24 025 Discontinued(Re order (will not trigger notification to Pharmacy)) omeprazole (PriLOSEC) [address] capsule TAKE 1 CAPSULE BY MOUTH BEFORE BREAKFAST. DO NOT CRUSH, OR CHEW CAPSULE. 90 capsule 1 06/13/20 25 025 Discontinued(Th erapy completed) pantoprazole (ProtoNix) 40 MG EC tablet Take 40 mg by mouth before breakfast. Do not crush, chew, or split. 025 Discontinued(Re order (will not trigger notification to Pharmacy)) Active Problems Problem Noted Date Diagnosed Date Presence of intrauterine contraceptive device Overview (09/26/2024): Mirena Obesity 09/26/2024 Assessment & Plan (09/26/2024 9:47 AM EDT): Ordering Lipid panel for further evaluation. Anemia 09/26/2024 Assessment & Plan (09/26/2024 9:48 AM EDT): Ordering lab work for further evaluation. Recurrent vaginitis 09/26/2024 Assessment & Plan (09/26/2024 9:47 AM EDT): Ordered BV swab for further treatment. Continue on Diflucan increased dose for Sx. Relevant Medication Fluconazole (Diflucan) 100 MG tablet Fluconazole (Diflucan) 150 MG tablet Vitamin D deficiency 09/26/2024 Assessment & Plan (09/26/2024 9:48 AM EDT): Ordering Vitamin D lab work for further evaluation of fatigue. Anxiety 04/18/2023 Assessment & Plan (04/18/2023 2:08 PM EDT): Will refer to behavioral therapy, no suicidal/homicidal ideas, currently off medications Migraine with aura 10/29/2022 Mood disorder 10/29/2022 Assessment & Plan (08/29/2023 3:12 PM EDT): Will restart Prozac, will follow up in office Seasonal allergies 10/29/2022 Resolved Problems Problem Noted Date Diagnosed Date Resolved Date Menorrhagia 09/26/2024 09/26/2024 Encounter for screening mamm ogram for malignant neoplasm of breast 08/29/2023 09/26/2024 Elevated blood pressure reading 04/18/2023 09/26/2024 Assessment & Plan (08/29/2023 3:13 PM EDT): Patient not monitoring her blood pressure, reinfoced importance of daily monitoring, will follow up in office Assessment & Plan (04/18/2023 2:09 PM EDT): Patient did picked up the bp monitor but has not been checking her bp, told to do it at least 2-3 times a week, bp target <140/90 Recurrent urinary tract infection 10/29/2022 09/26/2024 Encounters Date Type Department Care Team Description 11/14/2025 3:30 PM EST Office Visit [facility] PEDS [address] [place], [place] [phone] Yasmin Deras MD Anemia, unspecified type (Primary Dx); Encounter for health-related screening; Vitamin D deficiency 11/14/2025 Travel 11/13/2025 Refill [facility] [address] [place] [address] [phone] Yasmin Deras MD 11/12/2025 Telephone [facility] [address] [place] [phone] Yasmin Deras MD Lab Orders; Call Back Request from Last 3 Months Immunizations Immunization Administration Dates Next Due DTP 05/15/1993, 0,1988,1987,1988 Hep B, Adolescent or Pediatric 07/18/2000 Hib (PRP-T) 02/21/1991 Influenza injectable quadriv alent IIV4 with preservative 08/10/2018,10/15/2016 MMR 07/18/2000,07/06/1989 OPV, Trivalent 05/15/1993, 1,1988,1987 Pfizer Covid-19 Vaccine 12+ 03/03/2021 TD (adult), 2 Lf tetanus tox oid, preservative free, adsorbed 07/18/2000 Tdap 09/26/2024,03/15/2013,06/01/2011 Family History Medical History Relation Name Comments Diabetes Father Stroke Father Breast cancer Maternal Grandmother Coronary artery disease Mother Heart attack Mother Breast cancer Mother's Sister Relation Name Status Comments Father Maternal Grandmother Mother Mother's Sister Social History Tobacco Use Types Packs/Day Years Used Date Smoking Tobacco: Never Passive Smoke Exposure: Never Smokeless Tobacco: Never Tobacco Cessation:Counseling Given: Not Answered Alcohol Use Standard Drinks/Week Comments Never 0 [...] Orientation Straight 09/27/2022 10 :30 AM EDT Last Filed Vital Signs Vital Sign Reading [...] Mass Index 36.41 11/14/2025 3:18 PM EST Plan of Treatment Health Maintenance Due Date Last Done Comments Disability Screening 1988 Alcohol/Substance Use Screening 2000 Hepatitis B Vaccines (2 of 3 - 3-dose series) 08/15/2000 07/18/2000 Family Planning (PISQ) 02/27/2003 Hepatitis C Screening 02/27/2006 Depression Monitoring 03/27/2025 09/26/2024, 024 SDOH Screening 11/29/2025 11/29/2024 Influenza Vaccine (#1) 2026 08/10/2018, 2015 Postponed from 07/29/2025 (Patient Refused) COVID-19 Vaccine ( season) 2026 12/29/2022, 03/03/2021 Postponed from 07/29/2025 (Patient Refused) HPV Vaccines (1 - 3-dose series) 11/14/2026 Postponed from 02/27/2003 (Patient Refused) Tobacco Screening 11/14/2026 11/14/2025 Cervical Cancer Screening 01/26/2027 HPV/Cotest 01/26/2027 01/26/2022 Pap Smear 01/26/2027 01/26/2022 Lipid Panel 10/02/2029 10/02/2024 DTaP/Tdap/Td Vaccines (9 - Td or Tdap) 09/26/2034 09/26/2024, 03/15/2013, 06/01/2011, Additional history exists Zoster Vaccines (1 of 2) 02/27/2038 RSV Patients and Patients Aged 60 years or older (1 - 1-dose 75+ series) 02/27/2063 HIB Vaccines Completed 02/21/1991 IPV Vaccines Completed 05/15/1993, 01/27, 1988, Additional history exists HIV Screening Completed 06/26/2024 Hepatitis A Vaccines Aged Out No long er eligible based on patient's age to complete this topic Meningococcal B Vaccine Aged Out No l onger eligible based on patient's age to complete this topic Meningococcal Vaccine Aged Out No ha cookie eligible based on patient's age to complete this topic Pneumococcal Vaccine: Pediatrics (0 to 5 Years) and At-Risk Patients (6 to 49) Years Aged Out No longer eligible based on patient's age to complete this topic RSV under 20 months Aged Out No longe r eligible based on patient's age to complete this topic Rotavirus Vaccines Aged Out No longer eligible based on patient's age to complete this topic Procedures Procedure Name Priority Date/Time Associated Diagnosis Comments VITAMIN D,25-OH,TOTAL,IA Routine 11/14/2025 4:00 PM EST Vitamin D deficiency FERRITIN Routine 11/14/2025 4:00 PM EST Anemia, unspecified type IRON AND TOTAL IRON BINDING CAPACITY Routine 11/14/2025 4:00 PM EST Anemia, unspecified type COMPREHENSIVE METABOLIC PANEL Routine 11/14/2025 4:00 PM EST Anemia, unspecified type CBC WITH AUTO DIFFERENTIAL Routine 11/14/2025 4:00 PM EST Anemia, unspecified type LIPID PANEL, STANDARD Routine 10/02/2024 10:57 AM EST Class 2 obesity without serious comorbidity with body mass index (BMI) of 35.0 to 35.9 in adult, unspecified obesity type HIV 1/2 ANTIGEN/ANTIBODY, FOURTH GENERATION W/RFL Routine 06/26/2024 12:00 PM EDT Encntr screen for infections w sexl mode of transmiss HM PAP/HPV Routine 01/26/2022 from Last 3 Months or Most Recently Relevant to Health Maintenance Results * (ABNORMAL) Vitamin D, 25-Hydroxy, Total, Immunoassay (11/14/2025 4:00 PM EST) Vitamin D 25-OH Total 15.4(L) >30 ng/mL [facility] Comment: Health Based Reference Values*< 20 ng/mL Jftkzzdid51-10 ng/mL Insufficient> 30 ng/mL Sufficient*Antonietta MARSHALL. N [...] MD LAB BLOOD ORDERABLES Final Re sult [facility] [address] [place] [phone] * (ABNORMAL) CBC auto differential (11/14/2025 4:00 PM EST) White Blood Count 10.7 4.8 - 10.8 X10*3/uL [facility] Red Blood Count 4.19(L) 4.20 - 5.50 X10*6/uL [facility] Hemoglobin 8.9(L) 12.0 - 16.0 g/dl [facility] Hematocrit 31.2(L) 37.0 - 47.0 % [facility] Mean Corpuscular Volume 74.5(L) 80.0 - 98.0 fL [facility] Mean Corpuscular Hemoglobin 21.2(L) 27.0 - 33.0 pg [facility] Mean Corpuscular HGB Conc 28.5(L) 31.0 - 35.0 g/dl [facility] Red Cell Distribution Width 16.5(H) 11.0 - 16.0 % [facility] Platelet Count 436(H) 160 - 400 X10*3/uL [facility] Mean Platelet Volume 10.3 9.4 - 12.3 fL [facility] Neutrophils Percent Auto 71.9 45 - 73 % [facility] Imm Gran Pct Auto 0.3 0.0 - 0.4 % [facility] Lymphocytes Percent Auto 20.9 20 - 40 % [facility] Monocytes Percent Auto 6.1 2 - 11 % [facility] Eosinophils Percent Auto 0.2 0 - 4 % [facility] Basophils Percent Auto 0.6 0 - 2 % [facility] NRBC Pct Auto 0.0 0.0 - 0.2 /100WBC [facility] Neutrophils Absolute Auto 7.7 2.0 - 8.3 x10*3/uL [facility] Imm Gran Abs Auto 0.03 0.00 - 0.03 X10*3/uL [facility] Lymphocytes Absolute Auto 2.2 1.2 - 4.9 X10*3/uL [facility] Monocytes Absolute Auto 0.7 0.1 - 1.2 X10*3/uL [facility] Eosinophils Absolute Auto 0.0 0.0 - 0.4 X10*3/uL [facility] Basophils Absolute Auto 0.1 0.0 - 0.2 X10*3/uL [facility] NRBC Abs Auto 0.000 0.0 - 0.012 X10*3/uL [facility] Blood Venous blood specimen / Unknown 11/14/2025 4:00 PM EST 11/14/2025 5:47 PM EST Result [facility] Yasmin Deras MD LAB BLOOD ORDERABLES Final Re sult Performing Organization Address [facility] Co de Phone Number [facility] [address] [place] [phone] * (ABNORMAL) Iron And Total Iron Binding Capacity (11/14/2025 4:00 PM EST) Iron 17(L) 30 - 160 mcg/dL [facility] Total Iron Binding Capacity 372 228 - 428 mcg/dL [facility] Percent Iron Saturation 5(L) 15 - 50 % [facility] Unsaturated Iron Binding 355 ug/dL [facility] Blood Venous blood specimen / Unknown 11/14/2025 4:00 PM EST 11/14/2025 5:47 PM EST Result [facility] Yasmin Deras MD LAB BLOOD ORDERABLES Final Re sult Performing Organization Address City/[facility]/ZIP Co de Phone Number [facility] [address] [place] [phone] * (ABNORMAL) Ferritin (11/14/2025 4:00 PM EST) Ferritin 5(L) 10 - 122 ng/mL [facility] Blood Venous blood specimen / Unknown 11/14/2025 4:00 PM EST 11/14/2025 5:47 PM EST Yasmin Deras MD LAB BLOOD ORDERABLES Final Re sult Performing Organization Address City/[facility]/ZIP Co de Phone Number [facility] [address] [place] [phone] * (ABNORMAL) Comprehensive Metabolic Panel (11/14/2025 4:00 PM EST) Sodium 137 135 - 145 mmol/L [facility] Potassium 4.1 3.3 - 5.1 mmol/L [facility] Chloride 104 96 - 108 mmol/L [facility] Carbon Dioxide 26 22 - 29 mmol/L [facility] Anion Gap 11(L) 12 - 20 [facility] Urea Nitrogen (BUN) 10 9 - 16 mg/dL [facility] Creatinine, Serum 0.69 0.5 - 1.4 mg/dL [facility] Estimated Glomerular Filt Rate >60 [facility] Comment:Chronic Kidney Disea se: Estimated GFR < 60 mL/min/[id number] Kidney Disease: Estimated GFR < 15 mL/min/1.73m2 Glucose 91 60 - 115 mg/dL [facility] Calcium 9.5 8.4 - 10.2 mg/dL [facility] Bilirubin, Total 0.2 0.0 - 1.0 mg/dL [facility] Aspartate Amino Transferase 15 5 - 31 U/L [facility] Alanine Aminotransferase <6 0 - 31 U/L [facility] Total Protein 7.0 6.5 - 8.0 g/dL [facility] Albumin Level 4.3 3.5 - 5.0 g/dL [facility] Alkaline Phosphatase 64 39 - 117 U/L [facility] Blood Venous blood specimen / Unknown 11/14/2025 4:00 PM EST 11/14/2025 5:47 PM EST us Yasmin Deras MD LAB BLOOD ORDERABLES Final Re sult Performing Organization Address [facility]/ZIP Co de Phone Number [facility] [address] [place] [phone] * Lipid Panel, Standard (10/02/2024 10:57 AM EST) Triglycerides 105 <150 mg/dL [facility] Comment:Desirable Triglyceri de: less than 150 mg/dLBorderline High Triglyceride 150-199 mg/dLHigh Triglyceride: 200-499 mg/dLVery High Triglyceride: greater than or equal to 5OO mg/dL Cholesterol 169 <200 mg/dL [facility] Comment:Desirable Cholestero l: less than 200 mg/dLBorderline High Cholesterol: 200-239 mg/dLHigh Cholesterol: greater than 239 mg/dL LDL Cholesterol Calculated 87 <100 mg/dL [facility] Comment:Desirable LDL: less than 100 mg/dLNear Optimal/Above Optimal LDL: 110- 129 mg/dLBorderline High LDL: 130-159 mg/dLHigh LDL: 160-189 mg/dLVery High LDL: greater than or equal to 190 mg/dL HDL Cholesterol 61 >40 mg/dL [facility] Comment:Desirable HDL: great er than 40 mg/dL Note: This HDL assay may give artificially low results in patients with liver disease. Blood Venous blood specimen / Unknown 10/02/2024 10:57 AM EST 10/02/2024 2:23 PM EST us Yasmin Deras MD LAB BLOOD ORDERABLES Final Re sult [facility] [address] [place] [phone] * HIV-1/2 Antigen and Antibodies, Fourth Generation, with Reflexes (06/26/2024 12:00 PM EDT) HIV AB/AG Nonreactive Nonreactive [facility] Comment:HIV-1 p24 Ag and/or HIV-1/HIV-2 Ab not detected.A test result that is nonreactive does not exclude thepossibility of exposure to or infection with HIV-1 and/orHIV-2. Nonreactive results in this assay for individualswith prior exposure to HIV-1 and/or HIV-2 may be due toantigen and antibody levels that are below the limit ofdetection of this assay.The [employer] HIV Ag/Ab Combo assay result andsupplemental assay results should be interpreted inconjunction with the patient's clinical presentation,history and other laboratory results. If the results areinconsistent with clinical evidence, additional testing issuggested to confirm the result. Blood Venous blood specimen / Unknown 06/26/2024 12:00 PM EDT 06/26/2024 1:45 PM EDT Alisha Le [facility] LAB BLOOD ORDERABLES Viv dennison Result [facility] [address] [place] [address] [phone] * Pap Smear (01/26/2022) Pap Negative for intraephithelial lesion or malignancy Negative for intraephithelial lesion or malignancy, Other HPV Undetected Undetected, Indeterminate, Quantitative, Not Detected Historical Provider HEALTH MAINTENANCE Final Result from Last 3 Months or Most Recently Relevant to Health Maintenance Insurance [facility] C3 Care Teams Network Security Consultant Relationship Specialty Start Date End Date Yasmin Deras MD [address] [place] [phone] PCP - General Family Medicine 08/28/24
--- OUTSIDE RECORDS SUMMARY | 2025-11-14 19:35 | XMS_ITS | Encounter Summary ---
Author Organization [facility] Address [address] [place] [phone] Phone Care Team Providers Care Sales And Service Technician Name Role Phone Rajwinder Baker MD Primary Care Provider [phone] Encounter Details Date Type Department Care Team (Late st Contact Info) Description 09/06/2013 Documentation EM Family Medicine [address] [place] [address] Family Medicine, Physician [address] [place], [place] [phone] Social History Tobacco Use Types Packs/Day Years Used Date Smoking Tobacco: Never Assessed Comments Unknown Sex and Gender Information Value Date Recorded Sex Assigned at Not on file Legal Sex Female 4:16 PM EDT Gender Identity Not on file Sexual Orientation Not on file documented as of this encounter Plan of Treatment Not on file documented as of this encounter Visit Diagnoses Not on filedocumented in this encounter Care Teams Sales And Service Technician Relationship Specialty Start Date End Date Rajwinder Baker MD [address] [place] [address] RONNIE Hernandez [phone] PCP - General 07/08/17 01/13/23 documented as of this encounter
--- OUTSIDE RECORDS SUMMARY | 2025-11-14 19:35 | XMS_ITS | Encounter Summary ---
Author Organization [employer] Address [address] [place] [address] [place] [address] Care Team Providers Care Comic Artist Name Role Phone Yasmin Deras MD Primary Care Provider [phone] Encounter Details Date Type Department Care Team ([facility] st Contact Info) Description 09/03/2024 Orders Only [facility] MED & PEDS [address] [place], [place] [phone] MyrickMichael Domingo MD [address] [place] [address] Social History Tobacco Use Types Packs/Day Years Used Date Smoking Tobacco: Never Passive Smoke Exposure: Never Smokeless Tobacco: Never Alcohol Use Standard Drinks/Week Comments Never 0 (1 standard drink = 0.6 oz pur e alcohol) Depression Answer Date Recorded Patient Health Questionnaire-9 Score 21 02/02/2023 Depression Answer Date Recorded Patient Health Questionnaire-2 Score 4 02/02/2023 Comments No Sex and Gender Information Value Date Recorded Sex Assigned at Female 09/27/2022 10:30 AM EDT Legal Sex Female 10:30 AM EDT Gender Identity Female 09/27/2022 10:30 AM EDT Sexual Orientation Straight 09/27/2022 10 :30 AM EDT documented as of this encounter Plan of Treatment Not on file documented as of this encounter Visit Diagnoses Not on filedocumented in this encounter Additional Health Concerns Assessment Noted Time PHQ-9 Depression Total Score: 21 02/02/ 023 11:17 AM EST documented as of this encounter Care Teams Comic Artist Relationship Specialty Start Date End Date Yasmin Deras MD [address] [place] [address] PCP - General Family Medicine 08/28/24 documented as of this encounter
--- OUTSIDE RECORDS SUMMARY | 2025-11-14 19:35 | XMS_ITS | Encounter Summary ---
Author Organization [employer] Address [address] [facility] [address] [place] [address] Care Team Providers Care Ic Engineer Name Role Phone Yasmin Deras MD Primary Care Provider [phone] Reason for Visit * Reason Onset Date Comments Lab Orders 11/12/2025 Call Back Request 11/12/2025 Encounter Details Date Type Department Care Team ([facility] st Contact Info) Description 11/12/2025 Telephone [facility] [address] [place] [address] Yasmin Deras MD [address] [place], [place] [phone] Lab Orders; Call Back Request Social History Tobacco Use Types Packs/Day Years [...] AM EDT documented as of this encounter Miscellaneous Notes * Telephone Encounter - Ashley Chan RN - 11/13/2025 3:46 PM EST Called pt back regarding request for labs and any results, spoke to pt. Advised that she has not been seen here in >1 year and before any labs are ordered would like her seen in the office per Braeden. Given appointment tomorrow with PCP at 3:30 for exam and labs. Pt understands and agrees with plan. Pt is feeling tired, fatigued and intermittently mildly dizzy. Advised home care: rest, fluids,and call back as needed. * Telephone Encounter - Yasmin Deras MD - 11/13/2025 11:04 AM EST Patient last seen more than 1 year ago, it was recommended she followup with provider, can we schedule her for an appointment. Please and thanks! * Telephone Encounter - Waqar Munroe - 11/13/2025 10:57 AM EST Tc from pt requesting a call back regarding lab orders and results Contact pt at [phone] * Telephone Encounter - Shelia Esposito - 11/12/2025 10:23 AM EST Tc from pt requesting to get iron lab work. NO symptoms PCP Dr. Deras documented in this encounter Plan of Treatment Not on file documented as of this encounter Visit Diagnoses Not on filedocumented in this encounter Additional Health Concerns Assessment Noted Time PHQ-9 Depression Total Score: 15 024 9:32 AM EDT documented as of this encounter Care Teams Ic Engineer Relationship Specialty Start Date End Date Yasmin Deras MD [address] [place] [phone] PCP - General Family Medicine 08/28/24 documented as of this encounter
--- OUTSIDE RECORDS SUMMARY | 2025-11-14 19:35 | XMS_ITS | Encounter Summary ---
Author Organization [employer] Address [address] [facility] [address] [place] [address] Care Team Providers Care Billing Administrator Name Role Phone Yasmin Deras MD Primary Care Provider [phone] Encounter Details Date Type Department Care Team (Latest Contact Info) Description 11/14/2025 Travel Social History Tobacco Use Types Packs/Day Years [...] documented as of this encounter Care Teams Billing Administrator Relationship Specialty Start Date End Date Yasmin Deras MD [address] [place] [address] PCP - General Family Medicine 08/28/24 documented as of this encounter
--- OUTSIDE RECORDS SUMMARY | 2025-11-14 19:35 | XMS_ITS | Encounter Summary ---
Author Organization [facility] Address [address] [place] [phone] Phone Care Team Providers Care Life Coach Name Role Phone Rajwinder Baker MD Primary Care Provider [phone] Encounter Details Date Type Department Care Team (Late st Contact Info) Description 07/14/2017 Conversion Encounter [facility] [address] [place], [place] [phone] Social History Tobacco Use Types Packs/Day Years [...] on filedocumented in this encounter Care Teams Life Coach Relationship Specialty Start Date End Date Rajwinder Baker MD [address] [place] [address] PCP - General 07/08/17 01/13/23 documented as of this encounter
--- OUTSIDE RECORDS SUMMARY | 2025-11-14 19:35 | XMS_ITS | Clinical Summary ---
Author Organization [facility] Address [address] [place] [address] Phone Care Team Providers Care [employer] Name Role Phone Unavailable Primary Care Provider Unavailabl e Immunizations Immunization Administration Dates Next Due DTP 05/15/1993, 0,1988,1987,1988 Hep B, ped/adol 07/18/2000 Hib (PRP-T) 02/21/1991 MMR 07/18/2000,07/06/1989 OPV 05/15/1993, 1,1988,1987 Td (adult) (MBL), 2 Lf tetan us toxoid, PF, adsorbed 07/18/2000 Family History Relation Name Status Comments Father Father: Diabete s mellitus Maternal Grandfather Materna l grandfather: , cardiac Maternal Grandmother Materna l grandmother: cardiac Mother Alive Mother: Alive a nd well Social History Tobacco Use Types Packs/Day Years Used Date Smoking Tobacco: Never Assessed Comments Unknown Sex and Gender Information Value Date Recorded Sex Assigned at Not on file Legal Sex Female 4:16 PM EDT Gender Identity Not on file Sexual Orientation Not on file Plan of Treatment Health Maintenance Due Date Last Done Comments DTaP,Tdap,and Td Vaccines (6 - Tdap) 07/19/2000 07/18/2000, 05/15/1993, 04/28/1990, Additional history exists Hepatitis B Vaccines (2 of 3 - 3-dose series) 08/15/2000 07/18/2000 Varicella Vaccines (1 of 2 - 13+ 2-dose series) 02/27/2001 HPV Vaccines (1 - 3-dose SCDM series) 02/27/2015 Influenza Vaccines (#1) 2025 COVID-19 Vaccine ( season) 2025 HIB Vaccines Completed 02/21/1991 IPV Vaccines Completed 05/15/1993, 01/27, 1988, Additional history exists MMR Vaccines Completed 07/18/2000, 07/06/1989 Hepatitis A Vaccines Aged Out No long er eligible based on patient's age to complete this topic Men B Vaccine Aged Out No longer elig ible based on patient's age to complete this topic Meningococcal Vaccine Aged Out No ha cookie eligible based on patient's age to complete this topic Pneumococcal Vaccine Aged Out No long er eligible based on patient's age to complete this topic
--- OUTSIDE RECORDS SUMMARY | 2025-11-14 19:35 | XMS_ITS | Encounter Summary ---
Author Organization [employer] Address [address] [place] [address] [address] [place] [address] Care Team Providers Care Director Of Institutional Research Name Role Phone Yasmin Deras MD Primary Care Provider [phone] Reason for Visit * Reason Onset Date Comments Med Refill 11/13/2025 Encounter Details Date Type Department Care Team ([facility] st Contact Info) Description 11/13/2025 Refill [facility] [address] [place] [address] Yasmin Deras MD [address] [place] [id number] Social History Tobacco Use Types Packs/Day Years [...] documented as of this encounter Care Teams Director Of Institutional Research Relationship Specialty Start Date End Date Yasmin Deras MD [address] [place] [id number] PCP - General Family Medicine 08/28/24 documented as of this encounter
[2025-11-15 08:03] LABS: HBS Num1 0.12 mIU/mL (0-7.99); HBc Num1 0.10 S/CO (0.00-0.79); HBsAGNum1 0.47 S/CO (0.00-0.99); Hepatitis B Surface Antigen Negative (Negative); ~HepC Num1 0.06 S/CO (0.00-0.79); ~Hepatitis B Surface Antibody NONREACTIVE (Nonreactive); ~Hepatitis C Antibody Nonreactive (Nonreactive)
== END 2025-11-14 16:00 | disposition home or self-care (01) ==
LOC: HO.CHCLDS 15:59
PROVIDERS: Visit Provider Family Medicine
DX: Z13.89 Encounter for screening for other disorder (principal); E55.9 Vitamin D deficiency, unspecified; D64.9 Anemia, unspecified; Z11.59 Encounter for screening for other viral diseases
CPT/HCPCS: 36415; 80053; 82306; 82728; 83540; 85025; 86704; 86706; 86803; 87340